=== PATIENT | male | born 1955 ===

== ENCOUNTER 2017-06-05 08:22 | Day surgery (SDC) | payer MEDICARE ==
[2017-05-24 09:33] VITALS: BMI 30.2
[2017-06-05] MEDS ORDERED: Propofol 10 mg/ml Inj (20 ML) ONE (08:36)
[2017-06-05] MEDS ORDERED: Lactated Ringer's 1,000 ML IV SCH (09:30)
[2017-06-05 10:01] VITALS: O2SAT 98
[2017-06-05 10:26] VITALS: BP 147/78; PULSE 56; RESP 16; TEMP 97.5
== END 2017-06-05 11:05 | disposition home or self-care (01) ==
LOC: ENDO 08:22
PROVIDERS: ATTEND Internal Medicine
DX: K57.30 Diverticulosis of large intestine without perforation or abscess without bleeding (principal); K64.8 Other hemorrhoids; E11.42 Type 2 diabetes mellitus with diabetic polyneuropathy; B35.1 Tinea unguium; B35.3 Tinea pedis; I10 Essential (primary) hypertension; K44.9 Diaphragmatic hernia without obstruction or gangrene; K59.09 Other constipation; K31.89 Other diseases of stomach and duodenum; R14.0 Abdominal distension (gaseous); G47.00 Insomnia, unspecified; D51.0 Vitamin B12 deficiency anemia due to intrinsic factor deficiency; F33.9 Major depressive disorder, recurrent, unspecified; Z80.0 Family history of malignant neoplasm of digestive organs; Z80.3 Family history of malignant neoplasm of breast
CPT/HCPCS: 45378; 82948; J2001; J2704; J7040; J7120

== ENCOUNTER → 2018-08-09 | Outpatient (CLI) | payer MEDICARE | LOC: RAD 12:14 ==

== ENCOUNTER 2018-08-14 14:25 | Outpatient (CLI) | payer MEDICARE | END 2018-08-14 14:26 | disposition home or self-care (01) | LOC: RAD 14:26 | DX: S46.911D Strain of unspecified muscle, fascia and tendon at shoulder and upper arm level, right arm, subsequent encounter (principal); M77.8 Other enthesopathies, not elsewhere classified; E11.65 Type 2 diabetes mellitus with hyperglycemia ==